=== PATIENT | female | born 1940 | race Caucasian/White ===

== ENCOUNTER 2021-03-22 05:38 | Inpatient (IN) | payer MEDICARE ==
--- NOTE | 2021-03-22 06:46 | EDM.PDOC ---
<Homero Sifuentes - Last Filed: 03/22/21 06:48> ED HPI GENERAL MEDICAL PROBLEM - General Chief Complaint: Neurological Problem Stated Complaint: NO BALANCE Time Seen by Provider: 03/22/21 06:46 Source of Information: Reports: Patient, Family. Denies: Old Records History Limitations: Reports: Other (no old records) - History of Present Illness INITIAL COMMENTS - FREE TEXT/NARRATIVE: 80 yo female presents with dizziness that began about 0500h when she was in the bathroom. Says she was OK on the way to the bathroom, but got very dizzy with poor balance once there. No nausea or diaphoresis. No other neuro deficits noted. No CARLSON. No PHx of CVA. Feels chilled more than usual. Onset: Today, Sudden Onset Date: 03/22/21 Onset Time: 05:00 Duration: Minutes:, Constant Location: Reports: Head Quality: Reports: Other (no pain) Severity: Moderate Improves with: Reports: Other (lying) Worsens with: Reports: Other (Getting vertical) Context: Reports: Other (See HPI) Associated Symptoms: Reports: Fever/Chills (no fever). 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) - Related Data Allergies Allergy/AdvReac Type Severity Reaction Status Date / Time azithromycin AdvReac Nausea Verified 03/22/21 06:00 Home Meds: Home Meds Aspirin [Halfprin] 81 mg PO DAILY 03/22/21 [History] Calcium Carbonate [Calcium] 500 mg PO DAILY 03/22/21 [History] Cholecalciferol (Vitamin D3) [Vitamin D] 2,000 unit PO DAILY 03/22/21 [History] Furosemide 20 mg PO DAILY 03/22/21 [History] Lactulose 10 gm PO DAILY 03/22/21 [History] NIFEdipine [Nifedical XL] 30 mg PO DAILY 03/22/21 [History] Omeprazole 20 mg PO BIDAC 03/22/21 [History] allopurinoL [Zyloprim] 300 mg PO DAILY 03/22/21 [History] hydroCHLOROthiazide [Hydrochlorothiazide] 25 mg PO DAILY 03/22/21 [History] lisinopriL [Lisinopril] 40 mg PO DAILY 03/22/21 [History] metFORMIN [Glucophage] 500 mg PO BIDMEALS 03/22/21 [History] Past Medical History HEENT History: Reports: Impaired Vision Cardiovascular History: Reports: Hypertension Respiratory History: Reports: Sleep Apnea, SOB Gastrointestinal History: Reports: Chronic Constipation, GERD Genitourinary History: Reports: None [employer] History: Reports: Musculoskeletal History: Reports: Back Pain, Chronic, Gout Endocrine/Metabolic History: Reports: Diabetes, Type II, Obesity/BMI 30+ - Infectious Disease History Infectious Disease History: Reports: Novel Coronavirus - Past Surgical History Head Surgeries/Procedures: Reports: None HEENT Surgical History: Reports: Cataract Surgery, Tonsillectomy, Other (See Below) Cardiovascular Surgical History: Reports: None Respiratory Surgical History: Reports: None GI Surgical History: Reports: Appendectomy, Hernia, Abdominal Female Surgical History: Reports: Tubal Ligation Endocrine Surgical History: Reports: Thyroidectomy Musculoskeletal Surgical History: Reports: None Dermatological Surgical History: Reports: None Social & Family History - Tobacco Use Tobacco Use Status *Q: Former Tobacco User Used Tobacco, but Quit: Yes Month/Year Tobacco Last Used: 1999 Second Hand Smoke Exposure: No - Caffeine Use Caffeine Use: Reports: Coffee - Recreational Drug Use Recreational Drug Use: No ED ROS GENERAL - Review of Systems Review Of Systems: See Below Constitutional: Reports: Chills. Denies: Fever, Diaphoresis HEENT: Reports: No Symptoms Respiratory: Reports: No Symptoms Cardiovascular: Reports: No Symptoms GI/Abdominal: Reports: No Symptoms. Denies: Nausea : Reports: No Symptoms Musculoskeletal: Reports: No Symptoms Skin: Reports: No Symptoms Neurological: Reports: Dizziness, Difficulty Walking, Gait Disturbance. Denies: Confusion, Headache, Numbness, Trouble Speaking, Weakness, Change in Speech ED EXAM, NEURO - Physical Exam Exam: See Below Exam Limited By: No Limitations General Appearance: Alert, WD/WN, No Apparent Distress Eye Exam: Bilateral Eye: EOMI, Normal Inspection, PERRL, Other (no nystagmus noted) Ears: Normal External Exam, Normal Canal, Hearing Grossly Normal, Normal TMs Nose: Normal Inspection, No Blood Throat/Mouth: Normal Inspection, Normal Lips, Normal Oropharynx, Normal Voice, No Airway Compromise Head Exam: Atraumatic, Normocephalic Neck: Normal Inspection Respiratory/Chest: No Respiratory Distress, Lungs Clear, Normal Breath Sounds, No Accessory Muscle Use Cardiovascular: Regular Rate, Rhythm, No Edema GI/Abdominal: Normal Bowel Sounds, Soft, Non-Tender, No Distention Neurological: Alert, Normal Mood/Affect, CN II-XII Intact, No Motor/Sensory Deficits, Oriented x 3, Other (was asymptomatic lying, got very dizzy with sitting up. No nystagmus when symptomatic.) Extremities: Normal Inspection, Normal Range of Motion, Non-Tender, No Pedal Edema Psychiatric: Normal Affect, Normal Mood Skin Exam: Warm, Dry, Intact, Normal Color, No Rash Course - Radiology Interpretation Free Text/Narrative:: Head CT scan- CT Results Date: 03/22/21 Departure - Departure Disposition: Admitted As Inpatient 66 Clinical Impression: Gait instability - Discharge Information Referrals: PCP,None [Primary Care Provider] - Forms: ED Department Discharge Sepsis Event Note (ED) - Evaluation Sepsis Screening Result: No Definite Risk <OfficerMike - Last Filed: 03/22/21 10:43> Course - Vital Signs Last Recorded V/S: Last Vital Signs Temp 97.2 F 03/22/21 06:08 Pulse 75 03/22/21 09:32 Resp 20 03/22/21 08:32 BP 169/76 H 03/22/21 09:32 Pulse Ox 90 L 03/22/21 09:32 - Orders/Labs/Meds Orders: Active Orders 24 hr Category Date Time Status Cardiac Monitoring [RC] .As Directed Care 03/22/21 06:44 Active Labs: Laboratory Tests 03/22/21 03/22/21 03/22/21 Range/Units 06:52 06:52 08:00 WBC 5.0 (4.5-11.0) K/uL RBC 3.57 (3.30-5.50) M/uL Hgb 11.6 L (12.0-15.0) g/dL Hct 35.9 L (36.0-48.0) % MCV 101 H (80-98) fL MCH 33 H (27-31) pg MCHC 32 (32-36) % Plt Count 176 (150-400) K/uL Sodium 143 (140-148) mmol/L Potassium 3.3 L (3.6-5.2) mmol/L Chloride 104 (100-108) mmol/L Carbon Dioxide 29 (21-32) mmol/L Anion Gap 13.3 (5.0-14.0) mmol/L BUN 16 (7-18) mg/dL Creatinine 0.7 (0.6-1.0) mg/dL Est Cr Clr Drug Dosing 53.02 mL/min Estimated GFR (MDRD) > 60 (>60) Glucose 126 H (74-106) mg/dL Calcium 8.6 (8.5-10.1) mg/dL Urine Color Yellow (YELLOW) Urine Appearance Slightly cloudy A (CLEAR) Urine pH 6.0 (5.0-8.0) Ur Specific [place] 1.020 (1.008-1.030) Urine Protein Negative (NEGATIVE) mg/dL Urine Glucose (UA) Negative (NEGATIVE) mg/dL Urine Ketones Negative (NEGATIVE) mg/dL Urine Occult Blood Trace-intact H (NEGATIVE) Urine Nitrite Negative (NEGATIVE) Urine Bilirubin Negative (NEGATIVE) Urine Urobilinogen 0.2 (0.2-1.0) EU/dL Ur Leukocyte Esterase Negative (NEGATIVE) Urine RBC 0-5 (0-5) Urine WBC 0-5 (0-5) Ur Epithelial Cells Rare Amorphous Sediment Not seen Urine Bacteria Moderate Urine Mucus Not seen Meds: Medications Discontinued Medications Generic Name Dose Route Start Last Admin Trade Name Freq PRN Reason Stop Dose Admin Aspirin 324 mg 03/22/21 06:47 03/22/21 07:08 Aspirin 81 Mg Tab.Chew PO 03/22/21 06:48 324 mg ONETIME ONE Administration Sodium Chloride 100 mls @ 4 mls/sec 03/22/21 08:36 03/22/21 08:49 Normal Saline IV 03/22/21 08:37 4 mls/sec ASDIRECTED STA Administration Iopamidol 100 ml 03/22/21 08:36 03/22/21 08:49 Iopamidol 755 Mg/Ml 100 Ml Bottle IV 03/22/21 08:37 100 ml . DIRECTED STA Administration Departure - Departure Time of Disposition: 10:42 Condition: Fair Sepsis Event Note (ED) - Focused Exam Vital Signs: Vital Signs Temp Pulse Resp BP Pulse Ox 03/22/21 09:32 75 169/76 H 90 L 03/22/21 08:32 79 20 162/85 H 89 L 03/22/21 08:01 80 19 163/77 H 92 L 03/22/21 06:25 78 21 H 152/70 H 91 L 03/22/21 06:08 97.2 F 77 24 H 180/82 H 96 03/22/21 06:01 97.2 F 77 24 H 180/82 H 96 - Assessment/Plan Plan: Took over care from Dr. 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 Sharma interventional neurologist [facility] at 1030 he was suspicious for posterior stroke recommended MRI, aspirin, Plavix and a statin, call discussed case hospitalist on-call at 1040 kindly agreed to come evaluate the patient emergency department for admission. This note was dictated using [employer] voice recognition software please call with any questions on syntax or grammar.
[2021-03-22] MEDS ORDERED: Aspirin 81 MG Tab.Chew PO ONE (06:47)
--- NOTE | 2021-03-22 07:52 | CRLCT ---
For Patients: As a result of the Century Cures Act, medical imaging exams and procedure reports are released immediately into your electronic medical record. You may view this report before your referring provider. If you have questions, please contact your health care provider. INDICATION : Central vertigo or dizziness TECHNIQUE : CT Scan of the Brain without contrast. COMPARISON : No comparison FINDINGS: Extra-axial spaces: No signs for hemorrhage, mildly prominent. Brain: Mild symmetric areas of decreased white matter attenuation. No midline shift or mass effect. No signs of intra-axial hemorrhage. There is a area of cystic attenuation in the right cerebellar hemisphere. Ventricles normal in configuration minimally prominent. Calvarium/miscellaneous: Unremarkable. Moderate ectasia of the parasellar carotid arteries and empty sella configuration. IMPRESSION: 1. Cerebral volume loss. 2. No signs of intracranial mass or hemorrhage. 3. Chronic white matter microvascular ischemic changes likely and tiny area of cystic attenuation possibly a small area of previous lacunar encephalomalacia in the right cerebellar hemisphere. Please note that all CT scans at this facility use dose modulation, iterative reconstruction, and/or weight-based dosing when appropriate to reduce radiation dose to as low as reasonably achievable. Dictated by Mj Chin MD @ 03/22/2021 7:50:[address] Mj Chin @ Mar 22 2021 7:50AM
[2021-03-22] MEDS ORDERED: Iopamidol 755 Mg/ML 100 ML Bottle IV STA (08:36)
[2021-03-22] MEDS ORDERED: Sodium Chloride 0.9% 100 ML IV STA (08:36)
--- NOTE | 2021-03-22 09:39 | CRLCT ---
For Patients: As a result of the Century Cures Act, medical imaging exams and procedure reports are released immediately into your electronic medical record. You may view this report before your referring provider. If you have questions, please contact your health care provider. INDICATION: Acute stroke, difficulty walking, dizziness. TECHNIQUE: After standard noncontrast head CT, high resolution axial CT images acquired through the head following rapid intravenous administration of iodinated contrast. Multiplanar MIPS of cranial vasculature performed. COMPARISON: None. FINDINGS: Noncontrast head CT: There is no intracranial hemorrhage or fluid collection. The irby-white matter differentiation is maintained. Brain parenchymal volume loss is noted. There are nonspecific white matter hypodensities commonly seen with cerebral small vessel disease. The ventricles are of normal morphology. The basal cisterns are clear. CTA head: There is normal filling of the intracranial vasculature; i.e. there is no large vessel occlusion or significant intracranial stenosis. There is no cerebral aneurysm or evidence for vascular malformation. In the visualized cervical vasculature, there is carotid atherosclerotic disease without significant stenosis. IMPRESSION: No acute intracranial abnormality at CT/CTA. Nonspecific white matter hypodensities commonly seen with cerebral small vessel disease. Carotid atherosclerotic disease without significant stenosis. Bud Singh MD Neurointerventional Radiologist [facility] Please note that all CT scans at this facility use dose modulation, iterative reconstruction, and/or weight-based dosing when appropriate to reduce radiation dose to as low as reasonably achievable. Dictated by Bud Singh MD @ 03/22/2021 9:13:[address] Bud Singh @ Mar 22 2021 9:13PM
--- NOTE | 2021-03-22 11:01 | PCM.HP.2 ---
H&P History of Present Illness - General Date of Service: 03/22/21 Admit Problem/Dx: Admission Diagnosis/Problem Admission Diagnosis/Problem CVA, Cerebrovascular accident Source of Information: Patient, Family, Provider, RN Notes Reviewed History Limitations: Reports: No Limitations - History of Present Illness Initial Comments - Free Text/Narative: Ms. Gilbert an 80-year-old woman who was admitted through the emergency department with acute onset of inability to stand or walk independently, likely secondary to a posterior CVA. She has been feeling well over the past 2 days until early this morning. She awoke to go to the bathroom and was able to walk into the bathroom without difficulty. When she got off of the toilet noted marked imbalance and instability. She was brought into the emergency department for evaluation. CT scan of the head without contrast shows no acute abnormalities. CTA of the head and neck show no areas of significant blockage. Her symptoms have improved modestly while in the emergency department. She denies any other focal neurologic deficits and denies symptoms of vertigo. Denies previous history of cerebrovascular disease but does have known hypertension which she has had for some time. - Related Data Allergies/Adverse Reactions: Allergies Allergy/AdvReac Type Severity Reaction Status Date / Time azithromycin AdvReac Nausea Verified 03/22/21 06:00 Home Medications: Home Meds Aspirin [Halfprin] 81 mg PO DAILY 03/22/21 [History] Calcium Carbonate [Calcium] 500 mg PO DAILY 03/22/21 [History] Cholecalciferol (Vitamin D3) [Vitamin D] 2,000 unit PO DAILY 03/22/21 [History] Furosemide 20 mg PO DAILY 03/22/21 [History] Lactulose 10 gm PO DAILY 03/22/21 [History] NIFEdipine [Nifedical XL] 30 mg PO DAILY 03/22/21 [History] Omeprazole 20 mg PO BIDAC 03/22/21 [History] allopurinoL [Zyloprim] 300 mg PO DAILY 03/22/21 [History] hydroCHLOROthiazide [Hydrochlorothiazide] 25 mg PO DAILY 03/22/21 [History] lisinopriL [Lisinopril] 40 mg PO DAILY 03/22/21 [History] metFORMIN [Glucophage] 500 mg PO BIDMEALS 03/22/21 [History] Past Medical History HEENT History: Reports: Impaired Vision Cardiovascular History: Reports: Hypertension Respiratory History: Reports: Sleep Apnea, SOB Gastrointestinal History: Reports: Chronic Constipation, GERD Genitourinary History: Reports: None 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: Musculoskeletal History: Reports: Back Pain, Chronic, Gout Endocrine/Metabolic History: Reports: Diabetes, Type II, Obesity/BMI 30+ - Infectious Disease History Infectious Disease History: Reports: Novel Coronavirus - Past Surgical History Head Surgeries/Procedures: Reports: None HEENT Surgical History: Reports: Cataract Surgery, Tonsillectomy, Other (See Below) Cardiovascular Surgical History: Reports: None Respiratory Surgical History: Reports: None GI Surgical History: Reports: Appendectomy, Hernia, Abdominal Female Surgical History: Reports: Tubal Ligation Endocrine Surgical History: Reports: Thyroidectomy Musculoskeletal Surgical History: Reports: None Dermatological Surgical History: Reports: None Social & Family History - Tobacco Use Tobacco Use Status *Q: Former Tobacco User Used Tobacco, but Quit: Yes Month/Year Tobacco Last Used: 1999 Second Hand Smoke Exposure: No - Caffeine Use Caffeine Use: Reports: Coffee - Recreational Drug Use Recreational Drug Use: No H&P Review of Systems - Review of Systems: Review Of Systems: See Below General: Reports: No Symptoms HEENT: Reports: No Symptoms Pulmonary: Reports: No Symptoms Cardiovascular: Reports: No Symptoms Gastrointestinal: Reports: No Symptoms Genitourinary: Reports: No Symptoms Musculoskeletal: Reports: No Symptoms Skin: Reports: No Symptoms Psychiatric: Reports: No Symptoms Neurological: Reports: Difficulty Walking, Gait Disturbance. Denies: Confusion, Dizziness, Headache, Numbness, Seizure, Trouble Speaking Hematologic/Lymphatic: Reports: No Symptoms Immunologic: Reports: No Symptoms Exam - Exam Exam: See Below - Vital Signs Vital Signs: Last Vital Signs Temp 97.2 F 03/22/21 06:08 Pulse 75 03/22/21 09:32 Resp 20 03/22/21 08:32 BP 169/76 H 03/22/21 09:32 Pulse Ox 90 L 03/22/21 09:32 Weight: 194 lb - Exam General: Alert, Oriented, Cooperative, Mild Distress HEENT: Conjunctiva Clear, Hearing Intact, Mucosa Moist & [place], Normal Nasal Septum, Posterior Pharynx Clear, Pupils Equal Neck: Supple, Trachea Midline, +2 Carotid Pulse wo Bruit Lungs: Clear to Auscultation, Normal Respiratory Effort Cardiovascular: Regular Rate, Regular Rhythm, Normal S1, Normal S2. No: Systolic Murmur, Diastolic Murmur GI/Abdominal Exam: Soft, Non-Tender, No Organomegaly, No Distention Back Exam: Normal Inspection, Full Range of Motion Extremities: Non-Tender, No Pedal Edema Neurological: Cranial Nerves Intact, Strength Equal Bilateral, Normal Speech, Normal Tone, Sensation Intact, Abnormal Gait Neuro Extensive - Mental Status: Alert, Oriented x3, Normal Mood/Affect, Normal Cognition, Memory Intact - Patient Data Lab Results Last 24 hrs: Laboratory Results - last 24 hr 03/22/21 03/22/21 03/22/21 Range/Units 06:52 06:52 08:00 WBC 5.0 (4.5-11.0) K/uL RBC 3.57 (3.30-5.50) M/uL Hgb 11.6 L (12.0-15.0) g/dL Hct 35.9 L (36.0-48.0) % MCV 101 H (80-98) fL MCH 33 H (27-31) pg MCHC 32 (32-36) % Plt Count 176 (150-400) K/uL Sodium 143 (140-148) mmol/L Potassium 3.3 L (3.6-5.2) mmol/L Chloride 104 (100-108) mmol/L Carbon Dioxide 29 (21-32) mmol/L Anion Gap 13.3 (5.0-14.0) mmol/L BUN 16 (7-18) mg/dL Creatinine 0.7 (0.6-1.0) mg/dL Est Cr Clr Drug Dosing 53.02 mL/min Estimated GFR (MDRD) > 60 (>60) Glucose 126 H (74-106) mg/dL Calcium 8.6 (8.5-10.1) mg/dL Urine Color Yellow (YELLOW) Urine Appearance Slightly cloudy A (CLEAR) Urine pH 6.0 (5.0-8.0) Ur Specific [place] 1.020 (1.008-1.030) Urine Protein Negative (NEGATIVE) mg/dL Urine Glucose (UA) Negative (NEGATIVE) mg/dL Urine Ketones Negative (NEGATIVE) mg/dL Urine Occult Blood Trace-intact H (NEGATIVE) Urine Nitrite Negative (NEGATIVE) Urine Bilirubin Negative (NEGATIVE) Urine Urobilinogen 0.2 (0.2-1.0) EU/dL Ur Leukocyte Esterase Negative (NEGATIVE) Urine RBC 0-5 (0-5) Urine WBC 0-5 (0-5) Ur Epithelial Cells Rare Amorphous Sediment Not seen Urine Bacteria Moderate Urine Mucus Not seen Result Diagrams: 03/22/21 06:52 03/22/21 06:52 Sepsis Event Note - Evaluation Sepsis Screening Result: No Definite Risk - Focused Exam Vital Signs: Vital Signs Temp Pulse Resp BP Pulse Ox 03/22/21 09:32 75 169/76 H 90 L 03/22/21 08:32 79 20 162/85 H 89 L 03/22/21 08:01 80 19 163/77 H 92 L 03/22/21 06:25 78 21 H 152/70 H 91 L 03/22/21 06:08 97.2 F 77 24 H 180/82 H 96 03/22/21 06:01 97.2 F 77 24 H 180/82 H 96 *Q Meaningful Use (ADM) - VTE *Q VTE Pharmacological Contraindications *Q: High INR Value - VTE Risk Assess *Q Each Risk Factor Represents 1 Point: Obesity ( BMI > 25 kg/m2) Total Score 1 Point Risk Factors: 1 Each Risk Factor Represents 2 Points: None Total Score 2 Point Risk Factors: 0 Each Risk Factor Represents 3 Points: Age 75 Years or Greater Total Score 3 Point Risk Factors: 3 Each Risk Factor Represents 5 Points: Stroke, Less than 1 Month Total Score 5 Point Risk Factors: 5 Venous Thromboembolism Risk Factor Score *Q: 9 Problem List Initiated/Reviewed/Updated: Yes Orders Last 24hrs: Active Orders 24 hr Category Date Time Status Patient Status Manage Transfer [TRANSFER] Routine ADT 03/22/21 10:55 Ordered Cardiac Monitoring [RC] .As Directed Care 03/22/21 06:44 Active Resuscitation Status Routine Resus Stat 03/22/21 10:57 Ordered Assessment/Plan Comment:: ASSESSMENT AND PLAN POSTERIOR CVA/TIA-abrupt onset of inability to stand or walk independently. No symptoms or findings of vertigo. CT scans including CTA obtained in the [facility] department showed no acute abnormalities. Symptoms and findings reviewed with neurology on-call in [place], they feel posterior CVA is likely. Recommendation is for statin therapy, aspirin, and Plavix. MRI in a.m. -Neurochecks every 4 hours -PT consult in a.m. -Up only with assistance -Aspirin 325 mg p.o. daily -Atorvastatin 20 mg p.o. nightly -Plavix 75 mg p.o. daily -MRI in a.m. HYPERTENSION -Continue outpatient medications TYPE 2 DIABETES MELLITUS-managed with Metformin and diet -Continue Metformin -4 times daily glucometers -Low-dose sliding scale Humalog MAINTENANCE ISSUES -DVT prophylaxis; SCUDs -GI prophylaxis; continue outpatient PPI therapy -Callejas catheter; not indicated -Nutrition; consistent carb diet -Nicotine dependence; not required CODE STATUS-FULL CODE ADMISSION STATUS-patient will be admitted to inpatient status, expect at least a 2 night hospital stay for evaluation and management of problems as outlined above. At the time of this admission I do not reasonably expected evaluation and management of this problem will require more than a 96 hour hospital stay. DISPOSITION-anticipate discharge to home versus prison after the hospital stay. PRIMARY CARE PROVIDER-she receives her primary care in [facility] - Mortality Measure Prognosis:: Good
[2021-03-22] MEDS ORDERED: Acetaminophen 325 MG Tab PO PRN (11:20)
[2021-03-22] MEDS ORDERED: Sodium Chloride 0.9% 10 ML Syringe FLUSH PRN (11:20)
[2021-03-22] MEDS ORDERED: Ondansetron 4 MG/2 ML SDV IV PRN (11:20)
[2021-03-22] MEDS: Clopidogrel 75 MG Tab PO SCH (11:43)
[2021-03-22] MEDS: Pantoprazole 40 MG Tab.CR PO SCH (11:43)
[2021-03-22] MEDS ORDERED: Glucose Gel 15 GM in 37.5 GM Tube PO PRN (13:02)
[2021-03-22] MEDS ORDERED: 50% Dextrose in Water 50 ML Syringe IV PRN (13:02)
[2021-03-22] MEDS: Lactulose Soln 10 GM/15 ML 15 ML UD Cup PO SCH (13:40)
[2021-03-22] MEDS: Furosemide 20 MG Tab PO SCH (13:40)
[2021-03-22] MEDS: Hydrochlorothiazide 25 MG Tab PO SCH (13:40)
[2021-03-22] MEDS: Allopurinol 100 MG Tab PO SCH (13:41)
[2021-03-22] MEDS: NIFEdipine 30 MG Tab.ER PO SCH (13:41)
[2021-03-22] MEDS ORDERED: Non-Formulary Medication 1 Each (Omeprazole [Omeprazole] 20 MG Cap.Cr) PO SCH (16:30)
[2021-03-22] MEDS: metFORMIN 500 MG Tab PO SCH (17:25)
[2021-03-22] MEDS: Insulin Lispro 100 Unit/ML 3 ML KwikPen SUBCUT SCH ×2 (17:30→21:23)
[2021-03-22] MEDS ORDERED: atorvaSTATin 20 MG Tab PO SCH (21:00)
[2021-03-22] MEDS ORDERED: Melatonin 3 MG Tab PO PRN (21:44)
[2021-03-23] MEDS: Insulin Lispro 100 Unit/ML 3 ML KwikPen SUBCUT SCH ×2 (07:33→12:16)
[2021-03-23] MEDS: metFORMIN 500 MG Tab PO SCH (08:10)
[2021-03-23] MEDS: Pantoprazole 40 MG Tab.CR PO SCH (08:10)
[2021-03-23] MEDS: Lactulose Soln 10 GM/15 ML 15 ML UD Cup PO SCH (08:11)
[2021-03-23] MEDS: Clopidogrel 75 MG Tab PO SCH (08:13)
[2021-03-23] MEDS: Furosemide 20 MG Tab PO SCH (08:13)
[2021-03-23] MEDS: Hydrochlorothiazide 25 MG Tab PO SCH (08:13)
[2021-03-23] MEDS: NIFEdipine 30 MG Tab.ER PO SCH (08:14)
[2021-03-23] MEDS: Allopurinol 100 MG Tab PO SCH (08:15)
[2021-03-23] MEDS ORDERED: Allopurinol 100 MG Tab PO SCH (09:00)
[2021-03-23] MEDS ORDERED: Non-Formulary Medication 1 Each (Lisinopril [Lisinopril] 40 MG Tablet) PO SCH (09:00)
[2021-03-23] MEDS ORDERED: NIFEdipine 30 MG Tab.ER PO SCH (09:00)
[2021-03-23] MEDS ORDERED: Non-Formulary Medication 1 Each (Allopurinol [Zyloprim] 300 MG Tablet) PO SCH (09:00)
[2021-03-23] MEDS ORDERED: Aspirin 325 MG Tab.EC PO SCH (09:00)
[2021-03-23] MEDS ORDERED: Furosemide 20 MG Tab PO SCH (09:00)
[2021-03-23] MEDS ORDERED: Lactulose Soln 10 GM/15 ML 15 ML UD Cup PO SCH (09:00)
[2021-03-23] MEDS ORDERED: Lisinopril 20 MG Tab PO SCH (09:00)
[2021-03-23] MEDS ORDERED: Hydrochlorothiazide 25 MG Tab PO SCH (09:00)
[2021-03-23] MEDS ORDERED: Gadoteridol 279.3 MG/ML 20 ML SDV IV SCH (10:30)
--- NOTE | 2021-03-23 14:02 | MR ---
Brain w wo Cont CLINICAL HISTORY: Unsteady gait, suspect posterior CVA COMPARISON: CT head 02/20/2021 TECHNIQUE: Multiple pulse sequences were obtained through the brain in the axial, coronal, and sagittal planes both pre-and post IV contrast infusion gadolinium-based contrast. All images were obtained on a 1.5 Karin unit. FINDINGS: Diffusion images show scattered small hyperintensities on DWI images. These are also bright on ADC. Some of these show increased T2 signal on FLAIR images. There are other numerous foci of increased T2 signal in the periventricular and subcortical white matter with some involvement of the margins of the corpus callosum. There is also some foci in the basal ganglia. There are similar foci in the brainstem and cerebellar hemispheres and vermis. There is no focal mass lesion. There is no hemorrhage, edema, or extraaxial collection. The basal cisterns and sulci over the convexities are mildly prominent. The ventricles are normal for age. Postcontrast images show no enhancing lesions.. IMPRESSION: Multiple areas of T2 hyperintensity. Though this easily may be chronic ischemic microvascular change alone MS plaque should be considered. These do not enhance
--- NOTE | 2021-03-23 15:19 | PCM.DCSUM1 ---
Discharge Summary - Hospital Course Brief History: 80-year-old female with history of controlled type 2 diabetes mellitus and essential hypertension who presented with dizziness and gait difficulty. She was admitted for expedited work-up of suspected CVA involving the cerebellum. Diagnosis: Stroke: Yes Modified Potter Scale: No Signif.Disability Despite Sympt.Able to Carry Out Usual Act./Duties Modified Potter Scale Score: 1 - Discharge Data Discharge Date: 03/23/21 Discharge Disposition: Home, Self-Care 01 Condition: Good - Referral to Home Health Primary Care Physician: PCP None - Discharge Diagnosis/Problem(s) (1) Acute cerebrovascular accident of cerebellum SNOMED Code(s): 66141113778456771, [id number] ICD Code: I63.9 - CEREBRAL INFARCTION, UNSPECIFIED Status: Acute Current Visit: Yes (2) Type 2 diabetes mellitus SNOMED Code(s): 46227659 ICD Code: E11.9 - TYPE 2 DIABETES MELLITUS WITHOUT COMPLICATIONS Status: Chronic Current Visit: No Qualifiers: Diabetes mellitus halfway insulin use: without ferry terminal agent use Diabetes mellitus complication status: without complication Qualified Code(s): E11.9 - Type 2 diabetes mellitus without complications (3) HTN (hypertension) SNOMED Code(s): 61062173 ICD Code: I10 - ESSENTIAL (PRIMARY) HYPERTENSION Status: Chronic Current Visit: No Qualifiers: Hypertension type: primary hypertension Qualified Code(s): I10 - Essential (primary) hypertension - Patient Summary/Data Consults: Consultations 03/22/21 11:20 PT Evaluation and Treatment [CONS] Routine Please Evaluate and Treat. PT Reason for Consult: CVA This query below is only for informational purposes and is not editable. Hospital Course: Kiersten presented to the emergency room with acute onset of dizziness and gait instability. Work-up in the emergency room included a head CT as well as a CT angiogram of the brain. The head CT was unremarkable as was the CT angiogram. Patient continued to have significant dizziness and gait difficulty raising concern for a posterior CVA. The case was discussed with the on-call neurologist at [facility] in [place]. He recommended initiation of aspirin, statin as well as an MRI of the brain and echocardiogram. Patient was admitted to the hospital overnight. Overnight there were no significant difficulties. We have seen steady improvement in her symptoms. On the morning after admission she had an echocardiogram which was relatively unremarkable with a normal ejection fraction. We did not see any abnormal heart rhythms on telemetry monitoring overnight. She had an MRI the morning after admission which showed several small areas scattered throughout the brain as well as a slightly larger 1 in the right cerebellum. These were thought to represent small chronic infarcts/chronic small vessel ischemic disease. They did not follow a vascular territory. The largest 1 which was still subcentimeter was in the cerebellum and was thought to be the culprit for her symptoms. She did work with physical therapy and is getting around well with a walker. She has minimal residual troubles at this time. She feels comfortable going home. She did tolerate the change from simvastatin to atorvastatin as well as the initiation of clopidogrel. She has primary care follow-up scheduled in the near future. She will be going home with her daughter. - Patient Instructions Diet: Diabetic Diet Activity: As Tolerated Showering/Bathing: May Shower Other/Special Instructions: 1. You were in the hospital for further work-up and management of a suspected stroke involving the cerebellum that led to dizziness and difficulty with ambulation. The MRI of your brain did show a concerning area in the right side of the cerebellum that I suspect led to the dizziness. 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 To help treat this event and to help prevent future events I would recommend that we change your statin medication to atorvastatin (Lipitor) at a dose of 20 mg taken once daily at bedtime. I also recommend that we add clopidogrel (Plavix) as a second antiplatelet medication to help further reduce your risk of additional strokes. I have placed a referral to physical therapy to help improve your strength, balance and endurance following this event. I recommend that you follow-up with your new primary care as scheduled to help monitor your progress as you recover from the small stroke. 2. Stop taking your simvastatin (Zocor) but otherwise continue your previous home medications as they were prescribed prior to the hospital stay. - Discharge Plan *PRESCRIPTION DRUG MONITORING PROGRAM REVIEWED*: Not Applicable *COPY OF PRESCRIPTION DRUG MONITORING REPORT IN PATIENT VIPUL: Not Applicable Prescriptions/Med Rec: atorvaSTATin [Lipitor] 20 mg PO BEDTIME #90 tablet Clopidogrel [Plavix] 75 mg PO DAILY #90 tablet Home Medications: Home Meds Aspirin [Halfprin] 81 mg PO DAILY 03/22/21 [History] Calcium Carbonate [Calcium] 500 mg PO DAILY 03/22/21 [History] Cholecalciferol (Vitamin D3) [Vitamin D] 2,000 unit PO DAILY 03/22/21 [History] Furosemide 20 mg PO DAILY 03/22/21 [History] Lactulose 10 gm PO DAILY 03/22/21 [History] NIFEdipine [Procardia XL] 30 mg PO DAILY 03/22/21 [History] Omeprazole 20 mg PO BIDAC 03/22/21 [History] allopurinoL [Zyloprim] 300 mg PO DAILY 03/22/21 [History] hydroCHLOROthiazide [Hydrochlorothiazide] 25 mg PO DAILY 03/22/21 [History] lisinopriL [Lisinopril] 40 mg PO DAILY 03/22/21 [History] metFORMIN [Glucophage] 500 mg PO BIDMEALS 03/22/21 [History] Clopidogrel [Plavix] 75 mg PO DAILY #90 tablet 03/23/21 [Rx] atorvaSTATin [Lipitor] 20 mg PO BEDTIME #90 tablet 03/23/21 [Rx] Patient Handouts: Ischemic Stroke, [id number], Clopidogrel tablets, Atorvastatin tablets - Discharge Summary/Plan Comment DC Time >30 min.: No - Patient Data Vitals - Most Recent: Last Vital Signs Temp 36.6 C 03/23/21 14:28 Pulse 86 03/23/21 14:28 Resp 18 03/23/21 14:28 BP 111/86 03/23/21 14:28 Pulse Ox 95 03/23/21 14:28 Weight - Most Recent: 87.4 kg I&O - Last 24 hours: Intake & Output 03/23/21 03/23/21 03/23/21 06:59 14:59 22:59 Intake Total 880 Output Total 200 Balance 680 Lab Results - Last 24 hrs: Laboratory Results - last 24 hr 03/22/21 03/22/21 03/23/21 Range/Units 17:05 20:58 07:26 POC Glucose 165 H 106 109 H (74-106) mg/dL 03/23/21 Range/Units 11:31 POC Glucose 95 (74-106) mg/dL Med Orders - Current: Current Medications Acetaminophen (Acetaminophen 325 Mg Tab) 650 mg PO Q4H PRN PRN Reason: Pain (Mild 1-3)/fever Last Admin: 03/23/21 11:29 Dose: 650 mg Documented by: Allopurinol (Allopurinol 100 Mg Tab) 300 mg PO DAILY [facility] Last Admin: 03/23/21 08:15 Dose: 300 mg Documented by: Aspirin (Aspirin 325 Mg Tab.Ec) 325 mg PO DAILY [facility] Last Admin: 03/23/21 08:12 Dose: 325 mg Documented by: Atorvastatin Calcium (Atorvastatin 20 Mg Tab) 20 mg PO BEDTIME [facility] Last Admin: 03/22/21 21:36 Dose: 20 mg Documented by: Clopidogrel Bisulfate (Clopidogrel 75 Mg Tab) 75 mg PO DAILY [facility] Last Admin: 03/23/21 08:13 Dose: 75 mg Documented by: Dextrose (Glucose Gel 15 Gm In 37.5 Gm Tube) 15 gm PO ONETIME PRN PRN Reason: Hypoglycemia Dextrose/Water (50% Dextrose In Water 50 Ml Syringe) 50 ml IV ONETIME PRN PRN Reason: Hypoglycemia Furosemide (Furosemide 20 Mg Tab) 20 mg PO DAILY [facility] Last Admin: 03/23/21 08:13 Dose: 20 mg Documented by: Hydrochlorothiazide (Hydrochlorothiazide 25 Mg Tab) 25 mg PO DAILY [facility] Last Admin: 03/23/21 08:13 Dose: 25 mg Documented by: Insulin Human Lispro (Insulin Lispro 100 Unit/Ml 3 Ml Kwikpen) 0 unit SUBCUT QIDACANDBED [facility]; Protocol Last Admin: 03/23/21 12:16 Dose: Not Given Documented by: Lactulose (Lactulose Soln 10 Gm/15 Ml 15 Ml Ud Cup) 10 gm PO DAILY [facility] Last Admin: 03/23/21 08:11 Dose: 10 gm Documented by: Lisinopril (Lisinopril 20 Mg Tab) 40 mg PO DAILY [facility] Last Admin: 03/23/21 08:13 Dose: 40 mg Documented by: Melatonin (Melatonin 3 Mg Tab) 9 mg PO BEDTIME PRN PRN Reason: Sleep Last Admin: 03/22/21 21:54 Dose: 9 mg Documented by: Metformin HCl (Metformin 500 Mg Tab) 500 mg PO BIDMEALS [facility] Last Admin: 03/23/21 08:10 Dose: 500 mg Documented by: Nifedipine (Nifedipine 30 Mg Tab.Er) 30 mg PO DAILY [facility] Last Admin: 03/23/21 08:14 Dose: 30 mg Documented by: Ondansetron HCl (Ondansetron 4 Mg/2 Ml Sdv) 4 mg IV Q4H PRN PRN Reason: Nausea/Vomiting Pantoprazole Sodium (Pantoprazole 40 Mg Tab.Cr) 40 mg PO ACBREAKFAST [facility]OM[facility] Last Admin: 03/23/21 08:10 Dose: 40 mg Documented by: Senna/Docusate Sodium (Docusate Sodium/Sennosides 50-8.6 Mg Tab) 1 tab PO BID PRN PRN Reason: Constipation Sodium Chloride (Sodium Chloride 0.9% 10 Ml Syringe) 10 ml FLUSH ASDIRECTED PRN PRN Reason: Keep Vein Open Discontinued Medications Aspirin (Aspirin 81 Mg Tab.Chew) 324 mg PO ONETIME ONE Stop: 03/22/21 06:48 Last Admin: 03/22/21 07:08 Dose: 324 mg Documented by: Gadoteridol (Gadoteridol 279.3 Mg/Ml 20 Ml Sdv) 20 ml IV . DIRECTED [facility]OMAN Stop: 03/23/21 11:00 Last Admin: 03/23/21 11:05 Dose: 20 ml Documented by: Hydrochlorothiazide (Hydrochlorothiazide 25 Mg Tab) 25 mg PO DAILY [facility] Sodium Chloride (Normal Saline) 100 mls @ 4 mls/sec IV ASDIRECTED STA Stop: 03/22/21 08:37 Last Admin: 03/22/21 08:49 Dose: 4 mls/sec Documented by: Iopamidol (Iopamidol 755 Mg/Ml 100 Ml Bottle) 100 ml IV . DIRECTED STA Stop: 03/22/21 08:37 Last Admin: 03/22/21 08:49 Dose: 100 ml Documented by: Lactulose (Lactulose Soln 10 Gm/15 Ml 15 Ml Ud Cup) 10 gm PO DAILY [facility] Nifedipine (Nifedipine 30 Mg Tab.Er) 30 mg PO DAILY [facility] *Q Meaningful Use (DIS) - VTE *Q VTE Pharmacological Contraindications *Q: High INR Value
== END 2021-03-23 16:20 | disposition home or self-care (01) | DRG 66 ==
LOC: JP.ED 05:38 → JP.MS 10:55
PROVIDERS: ADMIT Hospitalist; ATTEND Hospitalist
DX: R26.89 Other abnormalities of gait and mobility (principal); I63.9 Cerebral infarction, unspecified; E11.9 Type 2 diabetes mellitus without complications; I10 Essential (primary) hypertension; H54.7 Unspecified visual loss; G47.30 Sleep apnea, unspecified; K59.09 Other constipation; K21.9 Gastro-esophageal reflux disease without esophagitis; G89.29 Other chronic pain; M54.9 Dorsalgia, unspecified; M10.9 Gout, unspecified; E66.9 Obesity, unspecified; Z86.16 Personal history of COVID-19; Z98.49 Cataract extraction status, unspecified eye; Z90.89 Acquired absence of other organs; Z79.82 Long term (current) use of aspirin; Z79.899 Other long term (current) drug therapy; Z79.02 Long term (current) use of antithrombotics/antiplatelets; Z79.84 Long term (current) use of oral hypoglycemic drugs; Z88.1 Allergy status to other antibiotic agents; Z90.49 Acquired absence of other specified parts of digestive tract; Z98.51 Tubal ligation status; Z87.891 Personal history of nicotine dependence; Z68.35 Body mass index [BMI] 35.0-35.9, adult
CPT/HCPCS: 36415; 70450; 70496; 80048; 81001; 85027; A9270; Q9967; 70553; 70553-26; 82947; 93306; 97162-GP; 97530-GP; 97535-GP; A9579; J1815